=== PATIENT | female | born 1985 | race Caucasian/White ===

== ENCOUNTER → 2020-09-04 | Outpatient (CLI) | payer OTHER | END | disposition home or self-care (01) | LOC: STAR 13:46 | PROVIDERS: ATTEND Obstetrics & Gynecology Maternal & Fetal Medicine | DX: Z20.822 Contact with and (suspected) exposure to COVID-19 (principal) | CPT/HCPCS: U0003 ==

== ENCOUNTER 2020-09-10 04:53 | Inpatient (IN) | payer OTHER ==
[~2020-09-10] VITALS: Ht 162.6 cm; Wt 85.0 kg
[2020-09-10] MEDS ORDERED: MISOPROSTOL 200 MCG TABLET ONE (04:58)
[2020-09-10] MEDS ORDERED: NEWBORN KIT ONE (04:58)
[2020-09-10] MEDS ORDERED: OXYTOCIN 30U/ 0.9% NaCL 500ML 500 ML ONE ×2 (04:59→18:50)
[2020-09-10] MEDS ORDERED: ONDANSETRON 2MG/ML, 2ML IVPush PRN ×2 (05:00→13:00)
[2020-09-10] MEDS ORDERED: LACTATED RINGERS 1,000 ML IV SCH (05:00)
[2020-09-10] MEDS ORDERED: TERBUTALINE 1 MG/ML, 1ML IVPush PRN (05:00)
[2020-09-10] MEDS ORDERED: D5%-LACTATED RINGERS 1,000 ML IV SCH (05:00)
[2020-09-10] MEDS ORDERED: MISOPROSTOL 25 MCG TABLET VG PRN (05:00)
[2020-09-10] MEDS ORDERED: TERBUTALINE 1 MG/ML, 1ML SQ PRN (05:00)
[2020-09-10] MEDS ORDERED: OXYTOCIN 30U/ 0.9% NaCL 500ML 500 ML IV ONE (05:00)
[2020-09-10] MEDS ORDERED: SODIUM CHLORIDE FLUSH 10ML SYR IVF PRN (05:00)
[2020-09-10] MEDS ORDERED: FENTANYL PF 100 MCG/2ML IV PRN (05:00)
[2020-09-10] MEDS ORDERED: FENTANYL PF 100 MCG/2ML IVPush PRN (05:00)
[2020-09-10 05:30] LABS: BASOPHILS % (AUTO) 1 % (0-1); EOSINOPHILS % (AUTO) 4 % (1-7); LYMPHOCYTES % (AUTO) 20 % (22-44); MEAN CORPUSCULAR HEMOGLOBIN 30.2 pg (27.0-34.8); MEAN CORPUSCULAR HGB CONC 33.6 g/dL (32.4-35.8); MEAN PLATELET VOLUME 8.9 fL (7.4-10.4); MONOCYTES % (AUTO) 4 % (2-9); NEUTROPHILS % (AUTO) 71 % (42-75); PLATELET COUNT 205 x10^3/uL (130-400); RED CELL DISTRIBUTION WIDTH 14.5 % (9.6-15.2)
[2020-09-10] MEDS ORDERED: PLEASE ENTER HEIGHT AND WEIGHT MC SCH (05:30)
[2020-09-10] MEDS ORDERED: PLEASE ENTER ALLERGIES MC SCH (05:30)
[2020-09-10 05:39] LABS: MD NO
[2020-09-10] MEDS ORDERED: MISOPROSTOL 25 MCG TABLET ONE (06:10)
[2020-09-10] MEDS ORDERED: LURA120T PO (06:46)
[2020-09-10] MEDS ORDERED: QUET50TA PO (06:46)
[2020-09-10] MEDS ORDERED: BUPIVACAINE 0.25% ONE ×2 (12:36→14:57)
[2020-09-10] MEDS ORDERED: FENTANYL/BUPIV./NS/PF 250 ML EPIDCONT ONE (12:37)
[2020-09-10] MEDS ORDERED: LACTATED RINGERS 1,000 ML IVBOLUS PRN (13:00)
[2020-09-10] MEDS ORDERED: FENTANYL/BUPIV./NS/PF 250 ML EPIDCONT SCH (13:00)
[2020-09-10] MEDS ORDERED: EPHEDRINE 50 MG/ML, 1ML IVPush PRN (13:00)
[2020-09-10] MEDS ORDERED: DIPHENHYDRAMINE 50 MG/ML, 1ML IVPush PRN (13:00)
[2020-09-10] MEDS ORDERED: NALOXONE 0.4 MG/ML, 1ML IVPush PRN (13:00)
[2020-09-10] MEDS ORDERED: CALCIUM CARBONATE 500 MG TAB.CHEW ONE (13:13)
[2020-09-10] MEDS ORDERED: ONDANSETRON 2MG/ML, 2ML ONE (14:30)
[2020-09-10] MEDS ORDERED: FENTANYL PF 100 MCG/2ML ONE (14:57)
[2020-09-10] MEDS ORDERED: MISOPROSTOL 200 MCG TABLET PR PRN (18:30)
[2020-09-10] MEDS ORDERED: METHYLERGONOVINE 0.2 MG/ML IM PRN (18:30)
[2020-09-10] MEDS ORDERED: CARBOPROST TROMETHAMINE 250 MCG/ML, 1ML IM PRN (18:30)
[2020-09-10] MEDS ORDERED: ACETAMINOPHEN 325 MG TABLET PO PRN ×2 (18:30)
[2020-09-10] MEDS ORDERED: DIPH,PERTUSS(ACELL),TET VAC/PF NC IM-VACC PRN (18:30)
[2020-09-10] MEDS ORDERED: SIMETHICONE 80 MG CHEW TAB PO PRN (18:30)
[2020-09-10] MEDS ORDERED: OXYcodone/APAP 5/325MG TABLET PO PRN ×2 (18:30)
[2020-09-10] MEDS ORDERED: IBUPROFEN 600 MG TABLET ONE (18:50)
[2020-09-10] MEDS: IBUPROFEN 600 MG TABLET PO PRN (19:00)
[2020-09-10] MEDS: OXYTOCIN 30U/ 0.9% NaCL 500ML 500 ML IV SCH ×2 (19:00→20:00)
[2020-09-10 20:10] VITALS: BP 104/68
[2020-09-10] MEDS: LACTATED RINGERS 1,000 ML IV SCH (21:00)
[2020-09-10] MEDS ORDERED: DOCUSATE 100 MG CAPSULE PO SCH (21:00)
[2020-09-10] MEDS: DOCUSATE 100 MG CAPSULE PO SCH (23:57)
[2020-09-11] VITALS: BP 104/67
[2020-09-11] MEDS: IBUPROFEN 600 MG TABLET PO PRN ×3 (01:04→14:05)
[2020-09-11] MEDS: OXYTOCIN 30U/ 0.9% NaCL 500ML 500 ML IV SCH (04:30)
[2020-09-11 05:15] VITALS: BP 94/59
[2020-09-11] MEDS: LACTATED RINGERS 1,000 ML IV SCH ×2 (05:15→13:00)
[2020-09-11 05:43] LABS: BASOPHILS % (AUTO) 0 % (0-1); EOSINOPHILS % (AUTO) 3 % (1-7); LYMPHOCYTES % (AUTO) 19 % (22-44); MEAN CORPUSCULAR HEMOGLOBIN 30.2 pg (27.0-34.8); MEAN CORPUSCULAR HGB CONC 34.1 g/dL (32.4-35.8); MEAN PLATELET VOLUME 8.5 fL (7.4-10.4); MONOCYTES % (AUTO) 6 % (2-9); NEUTROPHILS % (AUTO) 72 % (42-75); PLATELET COUNT 155 x10^3/uL (130-400); RED BLOOD COUNT 3.67 x10^6/uL (3.82-5.3); RED CELL DISTRIBUTION WIDTH 14.5 % (9.6-15.2)
[2020-09-11 05:45] LABS: MD NO
[2020-09-11] MEDS: DOCUSATE 100 MG CAPSULE PO SCH (08:36)
[2020-09-11] MEDS ORDERED: PRENATAL VIT/IRON/FA 1 EACH TABLET PO SCH (09:00)
[2020-09-11 11:00] VITALS: BP 109/70
[2020-09-11] MEDS ORDERED: IBUP-1222 PO (14:38)
[2020-09-11] MEDS ORDERED: DOCU-131 PO (14:39)
[2020-09-11 16:00] VITALS: BP 106/71
== END 2020-09-11 19:08 | disposition home or self-care (01) | DRG 768 ==
LOC: LDIP 04:53 → 2NW 19:58
PROVIDERS: ADMIT Obstetrics & Gynecology Maternal & Fetal Medicine; ATTEND Obstetrics & Gynecology Maternal & Fetal Medicine
PROC: 10907ZC Drainage of Amniotic Fluid, Therapeutic from Products of Conception, Via Natural or Artificial Opening (ICD-10-PCS; principal; 2020-09-10)
PROC: 0DQP0ZZ Repair Rectum, Open Approach (ICD-10-PCS; 2020-09-10)
PROC: 10E0XZZ Delivery of Products of Conception, External Approach (ICD-10-PCS; 2020-09-10)
PROC: 3E0P7VZ Introduction of Hormone into Female Reproductive, Via Natural or Artificial Opening (ICD-10-PCS; 2020-09-10)
DX: O70.3 Fourth degree perineal laceration during delivery (principal); Z37.0 Single live birth; Z3A.39 39 weeks gestation of pregnancy
CPT/HCPCS: 36415; 85025; 86592; 86850; 86900; G0378; J2590; J3010; J7120